=== PATIENT | female | born 1990 | race Caucasian/White ===

== ENCOUNTER → 2016-08-05 | Outpatient (CLI) | payer OTHER ==
--- NOTE | 2016-08-05 14:14 | MR ---
EXAMINATION TYPE: MR foot LT wo con DATE OF EXAM: 08/05/2016 1:58 PM COMPARISON: NONE HISTORY: 25-year-old female Generalized edema, pain when flex and extends toes. TECHNIQUE: Multiplanar, multisequence images of the the left foot were obtained without IV contrast. FINDINGS: No suspicious bone marrow placement or focal bone marrow edema. Vitamin E capsule is present along the dorsomedial aspect at the level of the first MTP joint. No und erlying significant soft tissue abnormality is identified. Visualized flexor and extensor tendons show no gross abnormality. There is some ganglion cyst formation in the region of the second through fourth TMT joints. The larg est measures up to 8 mm along the dorsal aspect of the third-fourth intermetatarsal joint Lisfranc ligament appears intact. No significant joint effusion seen within the forefoot or intermetatarsal bursal effusion identified. IMPRESSION: 1. Some small ganglion cysts measuring up to 8 mm have formed along the second through fourth TMT lanre nts. 2. No specific abnormality seen at the area of interest along the dorsomedial aspect of the first MTP joint.
== END | disposition home or self-care (01) ==
LOC: RADMRIMAIN 13:05
PROVIDERS: ATTEND Family Medicine
DX: M67.472 Ganglion, left ankle and foot (principal); R60.1 Generalized edema

== ENCOUNTER → 2016-10-13 | Outpatient (CLI) | payer OTHER ==
--- NOTE | 2016-10-13 10:32 | CT ---
EXAMINATION TYPE: CT chest w con DATE OF EXAM: 10/13/2016 10:14 AM COMPARISON: 02/17/2016 HISTORY: 25-year-old female with shortness of breath, previous abnormal lung exam. TECHNIQUE: Contiguous axial scanning of the chest after the administration of 100 mL of Omnipaque 300 . Coronal/sagittal reconstructions performed. CT DLP: 148.0mGycm. Automatic exposure control utilized for a dose reduction. FINDINGS: Heart is normal size without pericardial effusion. Aorta is normal caliber with conventional arch vessel branching anatomy. No thoracic lymphadenopathy by CT size criteria. Some mild residual thymic tissue as seen previously. Evaluation of the lungs again show similar mild biapical pleural-parenchymal scarring Some scattered mild peribronchial cuffing is noted, for example, axial image 20 in the right upper lo be. No consolidation or pleural effusion. Visualized upper abdomen shows focal fat along the anterior falciform ligament within the liver. Mode rate stool burden. Bones: No osseous destructive process. IMPRESSION: 1. Stable mild biapical pleural parenchymal scarring. 2. Scattered mild peribronchial cuffing could represent bronchitis or chronic asthma.
== END | disposition home or self-care (01) ==
LOC: RADCTMAIN 09:45
PROVIDERS: ATTEND Family Medicine
DX: J98.4 Other disorders of lung (principal); R06.02 Shortness of breath; R91.8 Other nonspecific abnormal finding of lung field
CPT/HCPCS: 71260; Q9967

== ENCOUNTER → 2018-05-28 | Outpatient (CLI) | payer BC ==
[2018-05-28 09:02] LABS: HCT 36.5 % (34.0-46.0); HGB 12.1 gm/dL (11.4-16.0); MCH 31.3 pg (25.0-35.0); MCHC 33.2 g/dL (31.0-37.0); MCV 94.1 fL (80.0-100.0); Platelet Count 205 k/uL (150-450); RBC 3.87 m/uL (3.80-5.40); RDW 12.5 % (11.5-15.5); WBC 8.7 k/uL (3.8-10.6)
== END | disposition home or self-care (01) ==
LOC: LABWHC1 07:41
PROVIDERS: ATTEND Obstetrics & Gynecology
DX: Z34.82 Encounter for supervision of other normal pregnancy, second trimester (principal)
CPT/HCPCS: 36415; 82950; 85027

== ENCOUNTER 2018-09-13 06:05 | Inpatient (IN) | payer BC ==
--- NOTE | 2018-09-12 16:46 | P.HPOB ---
History of Present Illness H&P Date: 09/12/18 Chief Complaint: repeat low transverse 27 year old presents at 39 weeks for repeat low transverse . Review of Systems All systems: negative Constitutional: Denies chills, Denies fever Eyes: denies blurred vision, denies pain Ears, nose, mouth and throat: Denies headache, Denies sore throat Cardiovascular: Denies chest pain, Denies shortness of breath Respiratory: Denies cough Gastrointestinal: Denies abdominal pain, Denies diarrhea, Denies nausea, Denies vomiting Genitourinary: Denies dysuria, Denies hematuria Musculoskeletal: Denies myalgias Integumentary: Denies pruritus, Denies rash Neurological: Denies numbness, Denies weakness Psychiatric: Denies anxiety, Denies depression Endocrine: Denies fatigue, Denies weight change Past Medical History Past Medical History: No Reported History Additional Past Medical History / Comment(s): OB history: First was a . THis is her second . She has had care with mi since 9 weeks. O+, abs neg, Rub Imm, RPR NR, Hep B neg, toxo neg, normal anatomy US and neg quad. normal 2 hr GTT. GBS neg. History of Any Multi-Drug Resistant Organisms: None Reported Past Surgical History: Section, Ear Surgery Additional Past Surgical History / Comment(s): pt states had reconstructive surgery on both her ear drums Past Anesthesia/Blood Transfusion Reactions: No Reported Reaction Smoking Status: Never smoker - Past Family History Mother History Unknown: Yes Family Medical History: No Reported History Medications and Allergies Home Medications Medication Instructions Recorded Confirmed Type Vit No.124/Iron/Folic 1 each PO DAILY 02/24/15 09/12/18 History [ Vitamin Tablet] Allergies Allergy/AdvReac Type Severity Reaction Status Date / Time No Known Allergies Allergy Verified 02/24/15 02:23 Exam Osteopathic Statement: *. No significant issues noted on an osteopathic structural exam other than those noted in the History and Physical/Consult. Intake and Output 09/12/18 09/12/18 09/12/18 06:59 14:59 22:59 Other: Weight 83.007 kg HEart: RRR Lungs: CTAB Abdomen: soft, nontender Extremeties: neg andie's Assessment and Plan (1) Previous section Status: Acute Code(s): Z98.891 - HISTORY OF UTERINE SCAR FROM PREVIOUS SURGERY SNOMED Code(s): 248122646 Plan: 1. Repeat low transverse
[2018-09-13] MEDS ORDERED: LACTATED RINGERS 1,000 ML IV SCH (06:19)
[2018-09-13] MEDS ORDERED: CITRIC ACID-SODIUM CITRATE 15 ML CUP PO ONE (06:20)
[2018-09-13 06:41] VITALS: BMI 32.1
[2018-09-13 06:41] LABS: Basophils % (A) 0 %; Eosinophils # (A) 0.1 k/uL (0-0.7); Eosinophils % (A) 1 %; HCT 37.8 % (34.0-46.0); HGB 12.5 gm/dL (11.4-16.0); Lymphocytes % (A) 18 %; MCH 31.2 pg (25.0-35.0); MCHC 33.1 g/dL (31.0-37.0); MCV 94.2 fL (80.0-100.0); Mean Platelet Volume 7.6; Monocytes # (A) 0.6 k/uL (0-1.0); Monocytes % (A) 5 %; Neutrophils # (A) 8.4 k/uL (1.3-7.7); Neutrophils % (A) 75 %; Platelet Count 211 k/uL (150-450); RBC 4.01 m/uL (3.80-5.40); RDW 13.1 % (11.5-15.5); WBC 11.2 k/uL (3.8-10.6)
[2018-09-13] MEDS: LACTATED RINGERS 1,000 ML IV SCH ×4 (06:42→19:06)
[2018-09-13] MEDS ORDERED: ceFAZolin IN SWFI 2 GM/20 ML SYRINGE IVP ONE (07:33)
[2018-09-13] MEDS ORDERED: OXYTOCIN 10 UNIT/ML 1 ML VIAL ONE (08:04)
[2018-09-13] MEDS ORDERED: ePHEDrine SULFATE/0.9% NACL/PF 50 MG/5 ML SYRINGE IV ONE (08:04)
[2018-09-13] MEDS ORDERED: ONDANSETRON 4 MG/2 ML VIAL ONE (08:04)
[2018-09-13] MEDS ORDERED: KETOROLAC 30 MG/ML 1 ML VIAL ONE (08:04)
[2018-09-13] MEDS ORDERED: NALBUPHINE 10 MG/ML (1 ML AMP) ONE (08:04)
[2018-09-13] MEDS ORDERED: MORPHINE SULFATE (PF) 0.3 MG/0.3 ML SYR ONE (08:04)
[2018-09-13] MEDS ORDERED: SIMETHICONE 80 MG CHEWABLE PO PRN (08:40)
[2018-09-13] MEDS ORDERED: LANOLIN CREAM 5 GM TUBE TOPICAL PRN (08:40)
[2018-09-13] MEDS ORDERED: NALOXONE 0.4 MG/ML 1 ML VIAL IV PRN (08:40)
[2018-09-13] MEDS ORDERED: diphenhydrAMINE 50 MG CAP PO PRN (08:40)
[2018-09-13] MEDS ORDERED: METOCLOPRAMIDE 5 MG/ML 2 ML VIAL IVP PRN (08:40)
[2018-09-13] MEDS ORDERED: ONDANSETRON 4 MG/2 ML VIAL IVP PRN (08:40)
[2018-09-13] MEDS ORDERED: diphenhydrAMINE 50 MG/ML 1 ML VIAL IVP PRN ×2 (08:40)
[2018-09-13] MEDS ORDERED: diphenhydrAMINE 25 MG CAP PO PRN (08:40)
[2018-09-13] MEDS ORDERED: HYDROcodone/APAP 7.5-325MG 1 EACH TAB PO PRN (08:40)
[2018-09-13] MEDS ORDERED: ZOLPIDEM 5 MG TAB PO PRN (08:40)
--- NOTE | 2018-09-13 08:40 | P.OP ---
Date of Procedure: 09/13/18 Preoperative Diagnosis: 1. Previous 2. G 2 P1 at 39 weeks Postoperative Diagnosis: Same Procedure(s) Performed: Repeat low transverse Anesthesia: spinal Surgeon: Brooke Mckeon Entry Level Sales Associate #1: Maryam Carlton Estimated Blood Loss (ml): 500 IV fluids (ml): 900 Urine output (ml): 300 Pathology: none sent Condition: stable Disposition: floor Operative Findings: Viable male, Apgars 8, 9, weight 7 lbs. 5 oz., normal uterus tubes and ovaries Description of Procedure: Patient was taken to the operating room where spinal anesthesia was found be adequate. She was prepped and draped in normal sterile fashion in dorsal supine position with a leftward tilt. Pfannenstiel skin incision was made the scalpel and carried through to the underlying layer of fascia with the scalpel. Fascia was incised in midline and carried bilaterally with the Brooks scissors. The superior aspect of the fascial incision was grasped with Juan Jose clamps elevated and the underlying rectus muscles dissected off with the Brooks's. Attention was then turned to inferior aspect of same incision which in a similar fashion was grasped tented up and the underlying rectus muscles dissected off with the Brooks's. The rectus muscles were the midline and the peritoneum was identified tented up and entered sharply with the scalpel. The incision was extended superiorly and inferiorly with good visualization of the bladder. The bladder blade was inserted and the vesicouterine peritoneum was incised the Metzenbaums then carried bilaterally and bladder flap created digitally. A low transverse incision was then made on the uterus with the scalpel. This was carried bilaterally and digital manner. 's head delivered atraumatically, nose and mouth bulb suctioned, cord clamped and cut, infant handed off to waiting nurses. Apgars 8,9, weight 7 lbs. 5 oz. Placenta delivered manually, intact with three-vessel cord. The uterus is exteriorized and cleared of all clots and debris. The uterine incision was closed with 0 Vicryl in a running locked fashion. Second layer of the same sutures used in imbricating fashion to obtain excellent hemostasis. Bladder flap was then reapproximated using 2-0 Vicryl in a running fashion. Both ovaries and tubes appeared normal. The uterus was placed back into the abdomen. The peritoneum was reapproximated using 2-0 Vicryl in a running fashion. The muscles were reapproximated using 2-0 Vicryl in interrupted fashion. The fascia was reapproximated using 0 Vicryl in a running fashion. The subcutaneous tissues closed with 3-0 Vicryl running fashion. The skin was closed yue. Patient tolerated the procedure well, sponge and instrument counts were correct times 2 and she was taken to the recovery room in stable condition.
[2018-09-13] MEDS ORDERED: OXYTOCIN 20 UNITS/1000 ML NS 1,000 ML IV SCH (08:45)
[2018-09-13] MEDS: SENNOSIDES-DOCUSATE SODIUM 1 EACH TAB PO SCH (22:30)
[2018-09-13] MEDS: KETOROLAC 30 MG/ML 1 ML VIAL IVP PRN (23:11)
[2018-09-14] MEDS: LACTATED RINGERS 1,000 ML IV SCH (02:36)
[2018-09-14] MEDS: SENNOSIDES-DOCUSATE SODIUM 1 EACH TAB PO SCH ×2 (07:42→19:22)
[2018-09-14 07:43] LABS: Basophils % (A) 0 %; Eosinophils % (A) 0 %; HCT 33.7 % (34.0-46.0); HGB 10.9 gm/dL (11.4-16.0); Lymphocytes # (A) 1.5 k/uL (1.0-4.8); Lymphocytes % (A) 12 %; MCH 31.3 pg (25.0-35.0); MCHC 32.4 g/dL (31.0-37.0); MCV 96.5 fL (80.0-100.0); Mean Platelet Volume 7.6; Monocytes # (A) 0.5 k/uL (0-1.0); Monocytes % (A) 4 %; Neutrophils # (A) 10.5 k/uL (1.3-7.7); Neutrophils % (A) 83 %; Platelet Count 157 k/uL (150-450); RBC 3.49 m/uL (3.80-5.40); RDW 13.4 % (11.5-15.5); WBC 12.7 k/uL (3.8-10.6)
[2018-09-14] MEDS: KETOROLAC 30 MG/ML 1 ML VIAL IVP PRN (11:56)
--- NOTE | 2018-09-14 13:14 | P.PNOBGPC ---
Subjective - Subjective Principal diagnosis: S/P RLTCS POD #1 Interval history: Pt seen and examined. Denies N/V, F/C, CP, SOB, calf pain. Patient reports: Reports appetite normal, Reports voiding normally, Reports pain well controlled, Reports ambulating normally [place]: doing well Objective - Vital Signs Latest vital signs: Vital Signs Temp Pulse Resp BP BP Pulse Ox 09/14/18 07:32 97.5 F L 85 16 95/59 09/14/18 04:00 98.0 F 92 18 101/53 98 09/14/18 00:00 97.6 F 96 18 113/55 97 09/13/18 20:00 97.6 F 78 16 109/59 99 09/13/18 15:46 97.0 F L 72 18 123/57 98 Intake and Output 09/13/18 09/14/18 09/14/18 22:59 06:59 14:59 Intake Total 625 200 Output Total 700 100 Balance -75 100 Intake: Intake, IV Titration 625 Amount Lactated Ringers 1,000 ml 625 @ 125 mls/hr IV .Q8H MANISH Rx#:[id number] Oral 200 Output: Urine 700 100 Other: # Voids 1 1 - Exam Lungs: bilateral: normal Chest: Normal S1, Normal S2 Extremities: Present: normal Abdomen: Present: normal appearance, soft. Absent: distention, tenderness Incision: Present: normal, dry, intact Uterus: Present: normal, firm - Labs Labs: Abnormal Lab Results - Last 24 Hours (Table) 09/14/18 Range/Units 07:20 WBC 12.7 H (3.8-10.6) k/uL RBC 3.49 L (3.80-5.40) m/uL Hgb 10.9 L (11.4-16.0) gm/dL Hct 33.7 L (34.0-46.0) % Neutrophils # 10.5 H (1.3-7.7) k/uL Assessment and Plan (1) Previous section Current Visit: No Status: Acute Code(s): Z98.891 - HISTORY OF UTERINE SCAR FROM PREVIOUS SURGERY SNOMED Code(s): 388217970 Plan: 1. cont pp care, passing flatus so will start reg diet
[2018-09-14] MEDS: ACETAMINOPHEN TAB 325 MG TAB PO PRN ×2 (16:14→23:28)
[2018-09-14] MEDS: IBUPROFEN 600 MG TAB PO PRN (19:23)
[2018-09-15 00:16] VITALS: PULSE 89
[2018-09-15] MEDS: IBUPROFEN 600 MG TAB PO PRN ×2 (02:06→07:41)
--- NOTE | 2018-09-15 07:26 | P.DS ---
Providers Date of admission: 09/13/18 06:05 Expected date of discharge: 09/15/18 Attending physician: Brooke Mckeon Primary care physician: Stated None Hospital Course: Lilly is doing very well post op day 2. She is ambulating, voiding, and she is tolerating her diet. She voices no complaints and is requesting discharge home today. Vital signs are stable and she is afebrile. Heart regular, lungs clear , extremities are without pain. Abdomen soft nontender incision is clean dry and intact. We'll plan to remove yue today and replaced with Steri-Strips. She'll follow up with Dr. Mckeon in 1 week. Prescription for a breast pump and Sturkie and Motrin are provided. All other questions are answered for her prior to discharge. She is stable for discharge this time. Patient Condition at Discharge: Good Plan - Discharge Summary Discharge Rx Participant: Yes New Discharge Prescriptions: New HYDROcodone/APAP 5-325MG [Sturkie 5-325] 1 tab PO Q4HR PRN #30 tab PRN Reason: Pain Ibuprofen [Motrin] 600 mg PO Q6HR PRN #30 tab PRN Reason: Pain No Action Vit No.124/Iron/Folic [ Vitamin Tablet] 1 each PO DAILY Discharge Medication List Vit No.124/Iron/Folic [ Vitamin Tablet] 1 each PO DAILY [History] HYDROcodone/APAP 5-325MG [Sturkie 5-325] 1 tab PO Q4HR PRN #30 tab 09/15/18 [Rx] Ibuprofen [Motrin] 600 mg PO Q6HR PRN #30 tab 09/15/18 [Rx] Follow up Appointment(s)/Referral(s): Brooke Mckeon DO [Doctor of Osteopathic Medicine] - 1 Week Activity/Diet/Wound Care/Special Instructions: No heavy lifting, limit stairs and driving, and pelvic rest. If any high temperatures, heavy bleeding, or severe pain call my office Discharge Disposition: HOME SELF-CARE
[2018-09-15] MEDS: SENNOSIDES-DOCUSATE SODIUM 1 EACH TAB PO SCH (07:42)
[2018-09-15 08:54] VITALS: BP 94/59; RESP 18; TEMP 97.7
== END 2018-09-15 10:40 | disposition home or self-care (01) | DRG 788 ==
LOC: 4FBP 06:05
PROVIDERS: ADMIT Obstetrics & Gynecology; ATTEND Obstetrics & Gynecology
PROC: 10D00Z1 Extraction of Products of Conception, Low, Open Approach (ICD-10-PCS; principal; 2018-09-13 08:00)
DX: O34.211 Maternal care for low transverse scar from previous cesarean delivery (principal); Z37.0 Single live birth; Z3A.39 39 weeks gestation of pregnancy
CPT/HCPCS: 85025; 86850; 86900; 86901

== ENCOUNTER → 2020-08-07 | Outpatient (CLI) | payer BC ==
[2020-08-07 14:19] VITALS: BP 107/72; PULSE 73; RESP 18; TEMP 98.4
--- NOTE | 2020-08-07 14:54 | P.GSHP ---
History of Present Illness H&P Date: 08/07/20 Chief Complaint: lump in right breast Lilly is a 29 year old white female seen in consultation for Estrellita Velazco. She noted an area of nodularity in her right breast approximately 2018. An ultrasound was done at that time. The area has not gone away [place] [address]. This has increased in size. This revealed 2 areas one which measured 2.2 cm and the second which measured 2.9 cm in proximity at the 2:00 subareolar region. Biopsy was recommended. The size is not related to her menstrual periods She has no nipple discharge or skin changes. She does have intermittent pain at the area of the nodules. She also notes that the nodules have increased in size. Caffeine: 2 cups coffee/day nicotine: Negative nikia-bromine: occasional BCP: none hormones: none Family History: maternal aunt: breast cancer paternal aunt: breast cancer Hormonal History: menarche: 14 , breast fed: yes, age at first : 23 periods: regular BCP: used them 3 years not now Surgical history: Eardrum repair C section times 2 Medical history: Negative Social history: Smoke: Negative Alcohol: Negative Drugs: negative - Constitutional Constitutional: Denies chills, Denies fever - EENT Eyes: denies blurred vision, denies pain Ears, nose, mouth and throat: Denies headache, Denies sore throat - Breasts Breasts: bilateral: as per HPI - Cardiovascular Cardiovascular: Denies chest pain, Denies shortness of breath - Respiratory Respiratory: Denies cough, Denies 7 - Gastrointestinal Gastrointestinal: Denies abdominal pain, Denies diarrhea, Denies nausea, Denies vomiting - Genitourinary (Female) Genitourinary: Denies dysuria, Denies hematuria - Menstruation Menstruation: Reports period normal - Musculoskeletal Musculoskeletal: Denies myalgias - Integumentary Integumentary: Denies pruritus, Denies rash - 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 THis is her second . She has had care with me since 9 weeks. O+, abs neg, Rub Imm, RPR NR, Hep B neg, toxo neg, normal anatomy US and neg quad. normal 2 hr GTT. GBS neg. History of Any Multi-Drug Resistant Organisms: None Reported Past Surgical History: Section, Ear Surgery Additional Past Surgical History / Comment(s): pt states had reconstructive surgery on both her ear drums Past Anesthesia/Blood Transfusion Reactions: No Reported Reaction Past Psychological History: No Psychological Hx Reported Smoking Status: Never smoker Past Alcohol Use History: None Reported Past Drug Use History: None Reported - Past Family History Mother History Unknown: Yes Family Medical History: No Reported History Medications and Allergies Home Medications Medication Instructions Recorded Confirmed Type Ibuprofen [Motrin] 600 mg PO Q6HR PRN #30 tab 09/15/18 08/07/20 Rx Cider Vinegar [Apple Cider Vinegar] 300 mg PO DAILY 08/07/20 08/07/20 History Allergies Allergy/AdvReac Type Severity Reaction Status Date / Time phenazopyridine Allergy Vomiting Verified 08/07/20 14:15 [From Pyridium] Surgical - Exam Vital Signs Temp Pulse Resp BP Pulse Ox 98.4 F 73 18 107/72 99 08/07/20 14:16 08/07/20 14:16 08/07/20 14:16 08/07/20 14:16 08/07/20 14:16 BMI 28.7 - General well developed, well nourished, no distress - Eyes normal ocular movement - ENT normal pinna, normal mucosa - Neck no masses, trachea midline - Respiratory normal respiratory effort, clear to auscultation - Cardiovascular Rhythm: regular Heart Sounds: normal: S1, S2 - Abdomen Abdomen: soft, bowel sounds - Integumentary normal turgor - Neurologic no disoriented, no combative - Musculoskeletal normal gait - Psychiatric oriented to time, oriented to person, oriented to place, speech is normal, memory intact breast exam: BRA 36A inspection: Bilateral grade 2 ptosis Palpation: Right breast: 6.5 x 5 cm mass in the immediate subareolar area consistent with what is seen on the ultrasound, fibrocystic changes otherwise no dominant masses or nodules of concern Right axilla: No adenopathy of concern Left breast: Multiple positional exam fibrocystic changes Left axilla: No adenopathy of concern Results Right breast ultrasound results reviewed Assessment and Plan Assessment: Impression: 1. Palpable mass right breast increasing in size 2. Abnormal ultrasound right breast Plan: 1. Ultrasound-guided core biopsy right breast lesion 2. Follow-up after ultrasound-guided core biopsy would most likely recommend removal. CC:Estrellita Velazco encounter 45 minutes, > 50% of time in planning and counselling
== END | disposition home or self-care (01) ==
LOC: WWCWWP 14:00
PROVIDERS: ATTEND Surgery
DX: Z53.9 Procedure and treatment not carried out, unspecified reason (principal)

== ENCOUNTER → 2020-08-11 | Day surgery (SDC) | payer BC ==
[2020-08-11 09:58] VITALS: RESP 16
[2020-08-11 11:06] VITALS: BP 106/67; PULSE 78; TEMP 98.8
--- NOTE | 2020-08-11 13:06 | USB ---
EXAMINATION TYPE: US breast needle core RT DATE OF EXAM: 08/11/2020 HISTORY: Right breast mass. FINDINGS: Maximal barrier technique was utilized. Hand hygiene achieved with soap and water and alco hol-based hand rub. The skin overlying a suitable path to the patient's mass in the lateral aspect of the right breast near the nipple was localized with ultrasound and the overlying skin prepped and dr aped. Ultrasound was utilized with sterile technique. Lidocaine was used for local anesthesia. A s kin nena was made with a scalpel. An 18-gauge needle was advanced under direct ultrasound guidance a nd core specimen obtained of the mass. Specimen submitted in formalin to Pathology. Following the pr ocedure, hemostasis achieved and the patient is discharged in stable condition without complication. IMPRESSION:STATUS POST ULTRASOUND GUIDED CORE BIOPSY OF right breast MASS, PATHOLOGY IS PENDING. THI S PROCEDURE IS PERFORMED BY THE UNDERSIGNED.
== END ==
LOC: RADUSWWP 09:36
PROVIDERS: ATTEND Surgery
DX: D24.1 Benign neoplasm of right breast (principal); N63.10 Unspecified lump in the right breast, unspecified quadrant; Z88.8 Allergy status to other drugs, medicaments and biological substances
CPT/HCPCS: 88305; 19083; J2001

== ENCOUNTER → 2020-08-20 | Outpatient (CLI) | payer BC ==
[2020-08-20 11:26] VITALS: BP 102/70; PULSE 66; RESP 16; TEMP 97.9
--- NOTE | 2020-08-20 11:40 | P.PN ---
Subjective Progress Note Date: 08/20/20 Principal diagnosis: mass right breast Lilly is a 29 year old white female seen in consultation for Estrellita Velazco. She noted an area of nodularity in her right breast approximately 2018. An ultrasound was done at that time. The area has not gone away [place] [address]. This has increased in size. This revealed 2 areas one which measured 2.2 cm and the second which measured 2.9 cm in proximity at the 2:00 subareolar region. Biopsy was recommended. The size is not related to her menstrual periods She has no nipple discharge or skin changes. She does have intermittent pain at the area of the nodules. She also notes that the nodules have increased in size. [place] [address]. 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 Caffeine: 2 cups coffee/day nicotine: Negative nikia-bromine: occasional BCP: none hormones: none Family History: maternal aunt: breast cancer paternal aunt: breast cancer Hormonal History: menarche: 14 , breast fed: yes, age at first : 23 periods: regular BCP: used them 3 years not now Surgical history: Eardrum repair C section times 2 Medical history: Negative Social history: Smoke: Negative Alcohol: Negative Drugs: negative - Constitutional Constitutional: Denies chills, Denies fever - EENT Eyes: denies blurred vision, denies pain Ears, nose, mouth and throat: Denies headache, Denies sore throat - Breasts Breasts: bilateral: as per HPI - Cardiovascular Cardiovascular: Denies chest pain, Denies shortness of breath - Respiratory Respiratory: Denies cough - Gastrointestinal Gastrointestinal: Denies abdominal pain, Denies diarrhea, Denies nausea, Denies vomiting - Genitourinary (Female) Genitourinary: Denies dysuria, Denies hematuria - Menstruation Menstruation: Reports period normal - Musculoskeletal Musculoskeletal: Denies myalgias - Integumentary Integumentary: Denies pruritus, Denies rash - 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 Neurological: Reports numbness, Denies weakness - Psychiatric Psychiatric: Denies anxiety, Denies depression - Endocrine Endocrine: Denies fatigue, Denies weight change - Hematologic/Lymphatic Comment: none - Allergic/Immunologic Allergic/Immunologic: Reports seasonal allergies Objective - Vital Signs Vital signs: Vital Signs Temp 97.9 F 08/20/20 11:23 Pulse 66 08/20/20 11:23 Resp 16 08/20/20 11:23 BP 102/70 08/20/20 11:23 Pulse Ox 99 08/20/20 11:23 Intake & Output 08/19/20 08/20/20 08/20/20 18:59 06:59 18:59 Weight 75.75 kg - Exam BMI 28.7 - Constitutional General appearance: Present: average body habitus - EENT Eyes: Present: EOMI ENT: Present: hearing grossly normal - Neck Neck: Present: normal ROM - Respiratory Respiratory: bilateral: CTA - Cardiovascular Rhythm: regular Heart sounds: normal: S1, S2 - Gastrointestinal General gastrointestinal: Present: soft - Integumentary Integumentary: Present: normal turgor - Musculoskeletal Musculoskeletal: Present: gait normal - Psychiatric Psychiatric: Present: A&O x's 3 - Additional findings Additional findings: Breast exam: BRA: 36A Inspection: Grade 2 ptosis bilaterally Palpation: Right breast: 6.5 x 5 cm mass in the immediate subareolar area consistent with fibroadenoma on ultrasound core biopsy Right axilla: No adenopathy of concern Left breast: Multiple positional exam fibrocystic changes Left axilla: No adenopathy of concern Assessment and Plan Assessment: Impression: Palpable mass right breast increasing in size consistent with fibroadenoma directly under the nipple areolar complex Plan: 1. Resection of palpable mass right breast in the operating room 2. Possible mastopexy 3. onco-plastic tissue transfer CC: Estrellita Velazco encounter 15 minutes, time spent in reviewing, examination, and counselling.
== END | disposition home or self-care (01) ==
LOC: WWCWWP 11:13
PROVIDERS: ATTEND Surgery
DX: Z53.9 Procedure and treatment not carried out, unspecified reason (principal)

== ENCOUNTER → 2020-10-01 | Outpatient (CLI) | payer BC ==
[2020-10-01 15:58] VITALS: BP 113/79; PULSE 72; RESP 18; TEMP 98.2
--- NOTE | 2020-10-01 16:08 | P.PN ---
Progress Note - Text Progress Note Date: 10/01/20 Subjective Progress Note Date: 08/20/20 Principal diagnosis: mass right breast Lilly is a 29 year old white female seen in consultation for Estrellita Velazco. She noted an area of nodularity in her right breast approximately 2018. An ultrasound was done at that time. The area has not gone away [place] [address]. This has increased in size. This revealed 2 areas one which measured 2.2 cm and the second which measured 2.9 cm in proximity at the 2:00 subareolar region. Biopsy was recommended. The size is not related to her menstrual periods She has no nipple discharge or skin changes. She does have intermittent pain at the area of the nodules. She also notes that the nodules have increased in size. [place] [address]. 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 Caffeine: 2 cups coffee/day nicotine: Negative nikia-bromine: occasional BCP: none hormones: none Family History: maternal aunt: breast cancer paternal aunt: breast cancer Hormonal History: menarche: 14 , breast fed: yes, age at first : 23 periods: regular BCP: used them 3 years not now Surgical history: Eardrum repair C section times 2 Medical history: Negative Social history: Smoke: Negative Alcohol: Negative Drugs: negative - Constitutional Constitutional: Denies chills, Denies fever - EENT Eyes: denies blurred vision, denies pain Ears, nose, mouth and throat: Denies headache, Denies sore throat - Breasts Breasts: bilateral: as per HPI - Cardiovascular Cardiovascular: Denies chest pain, Denies shortness of breath - Respiratory Respiratory: Denies cough - Gastrointestinal Gastrointestinal: Denies abdominal pain, Denies diarrhea, Denies nausea, Denies vomiting - Genitourinary (Female) Genitourinary: Denies dysuria, Denies hematuria - Menstruation Menstruation: Reports period normal - Musculoskeletal Musculoskeletal: Denies myalgias - Integumentary Integumentary: Denies pruritus, Denies rash - 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 Neurological: Reports numbness, Denies weakness - Psychiatric Psychiatric: Denies anxiety, Denies depression - Endocrine Endocrine: Denies fatigue, Denies weight change - Hematologic/Lymphatic Comment: none - Allergic/Immunologic Allergic/Immunologic: Reports seasonal allergies Objective - Exam BMI 28.7 - Constitutional General appearance: Present: average body habitus - EENT Eyes: Present: EOMI ENT: Present: hearing grossly normal - Neck Neck: Present: normal ROM - Respiratory Respiratory: bilateral: CTA - Cardiovascular Rhythm: regular Heart sounds: normal: S1, S2 - Gastrointestinal General gastrointestinal: Present: soft - Integumentary Integumentary: Present: normal turgor - Musculoskeletal Musculoskeletal: Present: gait normal - Psychiatric Psychiatric: Present: A&O x's 3 - Additional findings Additional findings: Breast exam: BRA: 36A Inspection: Grade 2 ptosis bilaterally Palpation: Right breast: 6.5 x 5 cm mass in the immediate subareolar area consistent with fibroadenoma on ultrasound core biopsy Right axilla: No adenopathy of concern Left breast: Multiple positional exam fibrocystic changes Left axilla: No adenopathy of concern Assessment and Plan Assessment: Impression: Palpable mass right breast increasing in size consistent with fibroadenoma directly under the nipple areolar complex Plan: 1. Resection of palpable mass right breast in the operating room 2. Possible mastopexy 3. onco-plastic tissue transfer Risk and benefits of the procedure were discussed with the patient. Secondary to the location directly under the nipple areolar complex risk of decreased sensation of the nipple areolar complex, bleeding, infection, reaction to the anesthetic are discussed. She also understands it could be some necrosis of the nipple areolar complex. There is also risk of recurrence of the lesion in the future. She understands that she will have asymmetry of the breast and wishes to proceed. CC: Estrellita Velazco
== END ==
LOC: WWCWWP 15:48
PROVIDERS: ATTEND Surgery
DX: D24.1 Benign neoplasm of right breast (principal)

== ENCOUNTER 2020-10-13 11:26 | Day surgery (SDC) | payer BC ==
[2020-10-08 14:48] VITALS: BMI 29.0
[~2020-10-13 11:26] MED LIST: HEPARIN SODIUM,PORCINE 5,000 UNIT/ML 1 ML VIAL SQ PRN; HYDROmorphone 0.5 MG/0.5 ML SYRINGE IVP PRN; LACTATED RINGERS 1,000 ML IV SCH; ONDANSETRON 4 MG/2 ML VIAL IVP PRN; fentaNYL (PF) 50 MCG/ML 2 ML AMP IV PRN
[2020-10-13] MEDS ORDERED: DEXAMETHASONE SOD PHOSPHATE 4 MG/ML 1 ML VIAL IVP ONE (11:59)
[2020-10-13] MEDS ORDERED: MIDAZOLAM 2 MG/2 ML VIAL ONE (13:21)
[2020-10-13] MEDS ORDERED: LIDOCAINE 1% INJ 10MG/ML (20 ML MDV) ONE (13:21)
[2020-10-13] MEDS ORDERED: fentaNYL (PF) 50 MCG/ML 2 ML AMP ONE (13:21)
[2020-10-13] MEDS ORDERED: SUCCINYLCHOLINE CHLORIDE 100 MG/5 ML SYR IV ONE (13:21)
[2020-10-13] MEDS ORDERED: PROPOFOL 10 MG/ML 20 ML VIAL IV ONE (13:21)
[2020-10-13] MEDS ORDERED: ONDANSETRON 4 MG/2 ML VIAL ONE (13:21)
[2020-10-13] MEDS ORDERED: LIDOCAINE 1% INJ 10MG/ML (20 ML MDV) SQ ONE ×2 (14:18)
--- NOTE | 2020-10-13 14:30 | P.OP ---
Date of Procedure: 10/13/20 Preoperative Diagnosis: Right breast fibroadenoma Postoperative Diagnosis: Same Procedure(s) Performed: Right breast mastopexy/excision of fibroadenoma Anesthesia: JOSSY Surgeon: Natasha Mccoy Estimated Blood Loss (ml): 5 IV fluids (ml): 600 Pathology: other (Fibroadenoma right breast) Condition: stable Disposition: same day Indications for Procedure: Enlarging mass in the nipple areolar complex Operative Findings: Soft tissue mass of the nipple areolar complex Description of Procedure: The patient is a 29-year-old white female with an enlarging mass in the right nipple areolar complex. Biopsy was consistent with fibroadenoma. This is increasing in size and bothering the patient and she wishes to have it excised. Additionally the right nipple areolar complex is lower than that on the left and therefore we chose to do this through a mastopexy incision. In the preoperative area the skin markings were placed. The plan is to reduce the area approximately 2 cm. A crescent was drawn for the mastopexy. The patient was brought to the operating room. Both breasts were prepped and draped in a sterile fashion. The crescent on the right breast was de-epithelialized. The breast tissue was entered and approximately 4 x 3 cm fibroadenoma was excised from under the nipple areolar complex. After assured that hemostasis was attained the deep tissues were closed using 3-0 Vicryl suture. The mastopexy incision was closed with 3-0 Vicryl suture followed by a 4-0 Monocryl. The area was placed approximately 2 cm. The patient tolerated the procedure in stable condition. The specimen was painted for orientation. The skin was closed using a nylon suture. 10 mL of 1% lidocaine was used to anesthetize the area of the incision.
--- NOTE | 2020-10-13 14:32 | P.DS ---
Providers Attending physician: Natasha Mccoy Primary care physician: Estrellita Velazco Plan - Discharge Summary Discharge Rx Participant: No New Discharge Prescriptions: No Action No Known Home Medications Discharge Medication List No Known Home Medications 10/08/20 [History] Follow up Appointment(s)/Referral(s): Natasha Mccoy MD [STAFF PHYSICIAN] - 1 Week Activity/Diet/Wound Care/Special Instructions: do not drive today may shower after 48 hours wear bra at all time Discharge Disposition: HOME SELF-CARE
[2020-10-13 14:48] VITALS: TEMP 97.4
[2020-10-13 14:49] VITALS: RESP 16
[2020-10-13] MEDS ORDERED: ONDANSETRON 4 MG/2 ML VIAL IVP ONE (15:07)
[2020-10-13] MEDS ORDERED: SCOPOLAMINE 1.5MG/72HR PATCH TRANSDERM ONE (15:49)
[2020-10-13 16:50] VITALS: BP 98/62
[2020-10-13 17:02] VITALS: PULSE 71
== END 2020-10-13 17:17 | disposition home or self-care (01) ==
LOC: OR 11:26
PROVIDERS: ATTEND Surgery
DX: D24.1 Benign neoplasm of right breast (principal); Z98.891 History of uterine scar from previous surgery; Z98.890 Other specified postprocedural states; Z88.8 Allergy status to other drugs, medicaments and biological substances
CPT/HCPCS: 19120; 19316; J2250; J1644; J1100; J0690; J2405; J2001; J3010; J0330; J2704; J1170; J1790; 88305

== ENCOUNTER → 2020-10-22 | Outpatient (CLI) | payer BC ==
[2020-10-22 16:51] VITALS: BP 115/73; PULSE 69; RESP 18; TEMP 98.2
--- NOTE | 2020-10-22 16:53 | P.PN ---
Progress Note - Text Progress Note Date: 10/22/20 Katherin is a 29-year-old white female status post excision of fibroadenoma of the right breast on . Pathology is benign fibroadenoma. She is doing well postoperatively without complaints. Physical exam: Incision clean and dry sutures to be removed Patient to follow up in 6 months with ultrasound of the right breast at that time CC: DR. Velazco
== END ==
LOC: WWCWWP 15:27
PROVIDERS: ATTEND Surgery
DX: Z08 Encounter for follow-up examination after completed treatment for malignant neoplasm (principal); Z98.890 Other specified postprocedural states

== ENCOUNTER → 2021-04-19 | Outpatient (CLI) | payer BC ==
--- NOTE | 2021-04-20 07:53 | USB ---
Reason for exam: follow-up at short interval from prior study. History: Family history of breast cancer in maternal aunt and breast cancer in paternal aunt. Benign US breast needle core RT of the right breast, August 11, 2020. Physical Findings: Nurse did not find any significant physical abnormalities on exam. US Breast RT Technologist: Stacia Calderon Right complete breast ultrasound includes all four quadrants, the retroareolar region and axilla. Finding demonstrates no cystic or solid lesion seen. These results were verbally communicated with the patient and result sheet given to the patient on 04/19/21. ASSESSMENT: Negative, BI-RAD 1 RECOMMENDATION: Routine screening mammogram of both breasts at age 42.
== END | disposition home or self-care (01) ==
LOC: RADUSWWP 14:54
PROVIDERS: ATTEND Surgery
DX: R92.8 Other abnormal and inconclusive findings on diagnostic imaging of breast (principal); Z80.3 Family history of malignant neoplasm of breast

== ENCOUNTER → 2021-04-29 | Outpatient (CLI) | payer BC ==
[2021-04-29 15:26] VITALS: BP 103/66; PULSE 61; RESP 12; TEMP 98.6
--- NOTE | 2021-04-29 15:42 | P.PN ---
Subjective Progress Note Date: 04/29/21 Principal diagnosis: follow up fibroadenoma resected right breast mass right breast Lilly is a 30 year old white female seen in consultation for Estrellita Velazco. She noted an area of nodularity in her right breast approximately 2018. An ultrasound was done at that time. The area did not go away [place] [address]. This had increased in size. This revealed 2 areas one which measured 2.2 cm and the second which measured 2.9 cm in proximity at the 2:00 subareolar region. Biopsy was recommended. The size is not related to her menstrual periods She has no nipple discharge or skin changes. She does have intermittent pain at the area of the nodules. She also notes that the nodules had increased in size. [place] [address]. 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 She underwent resection in the operating room of the area and 320 321 and pathology was a benign fibroadenoma. The patient had a repeat right breast ultrasound done on 920 721 lesions of co ncern were noted this was benign BIRADS 1. Patient has no lumps masses or nodules for which she is concerned in her breast. Caffeine: 2 cups coffee/day nicotine: Negative nikia-bromine: occasional BCP: none hormones: none Family History: maternal aunt: breast cancer paternal aunt: breast cancer Hormonal History: menarche: 14 , breast fed: yes, age at first : 23 periods: regular BCP: used them 3 years not now Surgical history: Eardrum repair C section times 2 Medical history: Negative Medical History: negative Social history: Smoke: Negative Alcohol: Negative Drugs: negative - Constitutional Constitutional: Denies chills, Denies fever - EENT Eyes: denies blurred vision, denies pain Ears, nose, mouth and throat: Denies headache, Denies sore throat - Breasts Breasts: bilateral: as per HPI - Cardiovascular Cardiovascular: Denies chest pain, Denies shortness of breath - Respiratory Respiratory: Denies cough - Gastrointestinal Gastrointestinal: Denies abdominal pain, Denies diarrhea, Denies nausea, Denies vomiting - Genitourinary (Female) Genitourinary: Denies dysuria, Denies hematuria - Menstruation Menstruation: Reports period normal - Musculoskeletal Musculoskeletal: Denies myalgias - Integumentary Integumentary: Denies pruritus, Denies rash - 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 Neurological: Reports numbness, Denies weakness - Psychiatric Psychiatric: Denies anxiety, Denies depression - Endocrine Endocrine: Denies fatigue, Denies weight change - Hematologic/Lymphatic Comment: none - Allergic/Immunologic Allergic/Immunologic: Reports seasonal allergies Objective - Vital Signs Vital signs: Vital Signs Temp 98.6 F 04/29/21 15:18 Pulse 61 04/29/21 15:18 Resp 12 04/29/21 15:18 BP 103/66 04/29/21 15:18 Pulse Ox 98 04/29/21 15:18 Intake & Output 04/28/21 04/29/21 04/29/21 18:59 06:59 18:59 Weight 73.028 kg - Exam BMI 27.6 - Constitutional General appearance: Present: average body habitus - EENT Eyes: Present: EOMI ENT: Present: hearing grossly normal - Neck Neck: Present: normal ROM - Respiratory Respiratory: bilateral: CTA - Cardiovascular Rhythm: regular Heart sounds: normal: S1, S2 - Integumentary Integumentary: Present: normal turgor - Musculoskeletal Musculoskeletal: Present: gait normal - Psychiatric Psychiatric: Present: A&O x's 3, appropriate affect, intact judgment & insight - Additional findings Additional findings: Breast exam: BRA: 36B inspection: Grade 1 ptosis bilaterally Palpation: Right breast: Well-healed scar from prior surgery no dominant masses or nodules of concern Right axilla: No adenopathy of concern Left breast: No dominant masses or nodules of concern, fibrocystic changes Left axilla: No adenopathy of concern Assessment and Plan Assessment: Impression: 1. Patient status post excision fibroadenoma right breast 2321 No evidence of recurrence Plan: Repeat ultrasound right breast in 6 months Follow-up with that time CC: Dr. Estrellita Velazco
== END ==
LOC: WWCWWP 15:16
PROVIDERS: ATTEND Surgery
DX: Z09 Encounter for follow-up examination after completed treatment for conditions other than malignant neoplasm (principal); Z86.018 Personal history of other benign neoplasm; Z88.5 Allergy status to narcotic agent; Z80.3 Family history of malignant neoplasm of breast; Z88.8 Allergy status to other drugs, medicaments and biological substances

== ENCOUNTER 2022-10-11 06:08 | Inpatient (IN) | payer BC ==
[2022-10-06 16:14] VITALS: BMI 34.8
[2022-10-11] MEDS ORDERED: CITRIC ACID-SODIUM CITRATE 15 ML CUP PO ONE (06:45)
[2022-10-11 07:21] VITALS: RESP 16
[2022-10-11 07:31] LABS: Basophils % (A) 0 %; Eosinophils # (A) 0.1 k/uL (0-0.7); Eosinophils % (A) 1 %; HCT 36.7 % (34.0-46.0); HGB 12.6 gm/dL (11.4-16.0); Lymphocytes # (A) 1.7 k/uL (1.0-4.8); Lymphocytes % (A) 18 %; MCH 31.8 pg (25.0-35.0); MCHC 34.5 g/dL (31.0-37.0); MCV 92.4 fL (80.0-100.0); Mean Platelet Volume 8.1; Monocytes # (A) 0.5 k/uL (0-1.0); Monocytes % (A) 5 %; Neutrophils # (A) 6.9 k/uL (1.3-7.7); Neutrophils % (A) 74 %; Platelet Count 186 k/uL (150-450); RBC 3.97 m/uL (3.80-5.40); RDW 12.7 % (11.5-15.5); WBC 9.4 k/uL (3.8-10.6)
[2022-10-11] MEDS ORDERED: MORPHINE SULFATE (PF) 0.3 MG/0.3 ML SYR ONE (07:55)
[2022-10-11] MEDS ORDERED: OXYTOCIN 30 UNITS/500 ML NS BAG IV ONE (07:55)
[2022-10-11] MEDS ORDERED: KETOROLAC 15 MG/ML 1 ML VIAL ONE (07:55)
[2022-10-11] MEDS ORDERED: PHENYLEPHRINE-0.9% NACL SYG 1,000 MCG/10 ML SYRINGE ONE (07:55)
--- NOTE | 2022-10-11 08:34 | P.HPOB ---
History of Present Illness H&P Date: 10/11/22 Chief Complaint: repeat low transverse 31-year-old presents at 39 weeks for repeat low transverse . Review of Systems All systems: negative Constitutional: Denies chills, Denies fever Eyes: denies blurred vision, denies pain Ears, nose, mouth and throat: Denies headache, Denies sore throat Cardiovascular: Denies chest pain, Denies shortness of breath Respiratory: Denies cough Gastrointestinal: Denies abdominal pain, Denies diarrhea, Denies nausea, Denies vomiting Genitourinary: Denies dysuria, Denies hematuria Musculoskeletal: Denies myalgias Integumentary: Denies pruritus, Denies rash Neurological: Denies numbness, Denies weakness Psychiatric: Denies anxiety, Denies depression Endocrine: Denies fatigue, Denies weight change Past Medical History Past Medical History: No Reported History Additional Past Medical History / Comment(s): PALPABLE MASS TO RIGHT BREAST biopsy performed and mass removed. History of Any Multi-Drug Resistant Organisms: None Reported Past Surgical History: Section, Ear Surgery Additional Past Surgical History / Comment(s): pt states had reconstructive surgery on both her ear drums. C-SEC X 2. RT FIBROID BREAST TUMOR REMOVED Past Anesthesia/Blood Transfusion Reactions: Postoperative Nausea & Vomiting (PONV) Past Psychological History: No Psychological Hx Reported Smoking Status: Never smoker Past Alcohol Use History: None Reported Past Drug Use History: None Reported - Past Family History Father Family Medical History: COPD, Hypertension Additional Family Medical History / Comment(s): Goutt Mother History Unknown: Yes Family Medical History: Diabetes Mellitus, Hypertension, Rheumatoid Arthritis (RA) Additional Family Medical History / Comment(s): spinal stenosis Medications and Allergies Home Medications Medication Instructions Recorded Confirmed Type Vit No.179/Iron/Folic 1 each PO DAILY 10/06/22 10/06/22 History [ Tablet] Allergies Allergy/AdvReac Type Severity Reaction Status Date / Time phenazopyridine Allergy Vomiting Verified 10/06/22 16:08 [From Pyridium] morphine AdvReac Nausea & Verified 10/06/22 16:08 Vomiting Exam Osteopathic Statement: *. No significant issues noted on an osteopathic structural exam other than those noted in the History and Physical/Consult. Vital Signs Temp Pulse Resp BP Pulse Ox 10/11/22 06:27 97.3 F L 87 16 133/60 98 Intake and Output 10/10/22 10/11/22 10/11/22 22:59 06:59 14:59 Other: Weight 92.079 kg Heart: Regular rate and rhythm Lungs: Clear to auscultation bilaterally Abdomen: Soft, nontender Extremities: Negative Homans sign Results Result Diagrams: 10/11/22 06:53 Assessment and Plan (1) Previous section Current Visit: No Status: Acute Code(s): Z98.891 - HISTORY OF UTERINE SCAR FROM PREVIOUS SURGERY SNOMED Code(s): 370792901 Plan: 1. Repeat low transverse
--- NOTE | 2022-10-11 08:37 | P.OP ---
Date of Procedure: 10/11/22 Preoperative Diagnosis: 1. at 39 weeks 2. Previous section Postoperative Diagnosis: Same Procedure(s) Performed: Repeat low transverse Anesthesia: spinal Surgeon: Brooke Mckeon Baking Assistant #1: Junior Mckeon Estimated Blood Loss (ml): 675 IV fluids (ml): 700 Urine output (ml): 200 Pathology: none sent Condition: stable Disposition: floor Operative Findings: Viable female, Apgars 9, 9, weight 8 pounds. Normal uterus tubes and ovaries Description of Procedure: Patient was taken to the operating room where spinal anesthesia was found be adequate. She was prepped and draped in normal sterile fashion in dorsal supine position with a leftward tilt. Pfannenstiel skin incision was made the scalpel and carried through to the underlying layer of fascia with the scalpel. Fascia was incised in midline and carried bilaterally with the Brooks scissors. The superior aspect of the fascial incision was grasped with [place] clamps elevated and the underlying rectus muscles dissected off with the Brooks's. Attention was then turned to inferior aspect of same incision which in a similar fashion was grasped tented up and the underlying rectus muscles dissected off with the Brooks's. The rectus muscles were the midline and the peritoneum was identified tented up and entered sharply with the scalpel. The incision was extended superiorly and inferiorly with good visualization of the bladder. The bladder blade was inserted and the vesicouterine peritoneum was incised the Metzenbaums then carried bilaterally and bladder flap created digitally. A low transverse incision was then made on the uterus with the scalpel. This was carried bilaterally and digital manner. 's head delivered atraumatically, nose and mouth bulb suctioned, cord clamped and cut, handed off to waiting nurses. Apgars 9,9, weight 8 lbs. Placenta delivered manually, intact with three-vessel cord. The uterus is exteriorized and cleared of all clots and debris. The uterine incision was closed with 0 Vicryl in a running locked fashion. Second layer of the same sutures used in imbricating fashion to obtain excellent hemostasis. Both ovaries and tubes appeared normal. The uterus was placed back into the abdomen. The peritoneum was reapproximated using 2-0 Vicryl in a running fashion. The muscles were reapproximated using 2-0 Vicryl in interrupted fashion. The fascia was reapproximated using 0 Vicryl in a running fashion. The subcutaneous tissues closed with 3-0 Vicryl running fashion. The skin was closed yue. Patient tolerated the procedure well, sponge and instrument counts were correct times 2 and she was taken to the recovery room in stable condition.
[2022-10-11] MEDS ORDERED: diphenhydrAMINE 50 MG CAP PO PRN (08:38)
[2022-10-11] MEDS ORDERED: diphenhydrAMINE 25 MG CAP PO PRN (08:38)
[2022-10-11] MEDS ORDERED: METOCLOPRAMIDE 5 MG/ML 2 ML VIAL IVP PRN (08:38)
[2022-10-11] MEDS ORDERED: ONDANSETRON 4 MG/2 ML VIAL IVP PRN (08:38)
[2022-10-11] MEDS ORDERED: NALOXONE 0.4 MG/ML 1 ML VIAL IV PRN (08:38)
[2022-10-11] MEDS ORDERED: LANOLIN CREAM 5 GM TUBE TOPICAL PRN (08:38)
[2022-10-11] MEDS ORDERED: SIMETHICONE 80 MG CHEWABLE PO PRN (08:38)
[2022-10-11] MEDS ORDERED: diphenhydrAMINE 50 MG/ML 1 ML VIAL IVP PRN ×2 (08:38)
[2022-10-11] MEDS ORDERED: ZOLPIDEM 5 MG TAB PO PRN (08:38)
[2022-10-11] MEDS ORDERED: OXYTOCIN 30 UNITS/500 ML NS 30 UNIT in SALINE 1 500ML.BAG IV SCH (08:45)
[2022-10-11] MEDS: ACETAMINOPHEN TAB 500 MG TAB PO SCH ×2 (14:30→18:20)
[2022-10-11] MEDS: IBUPROFEN 600 MG TAB PO SCH ×2 (14:32→20:57)
[2022-10-11] MEDS: KETOROLAC 15 MG/ML 1 ML VIAL IVP SCH (14:39)
[2022-10-11] MEDS: LACTATED RINGERS 1,000 ML IV SCH (17:02)
[2022-10-11] MEDS: SENNOSIDES-DOCUSATE SODIUM 1 EACH TAB PO SCH (20:57)
[2022-10-12] MEDS: ACETAMINOPHEN TAB 500 MG TAB PO SCH ×5 (00:38→23:59)
[2022-10-12] MEDS: LACTATED RINGERS 1,000 ML IV SCH (04:37)
[2022-10-12] MEDS: IBUPROFEN 600 MG TAB PO SCH ×4 (04:53→21:25)
[2022-10-12] MEDS: KETOROLAC 15 MG/ML 1 ML VIAL IVP SCH ×2 (05:00→07:20)
--- NOTE | 2022-10-12 07:13 | P.PN ---
Progress Note - Text Progress Note Date: 10/12/22 Postoperative day 1 status post section under spinal anesthesia, and i ntrathecal morphine given for postoperative analgesia, patient doing well, there is no anesthesia related complications, Patient had no headache, vital signs stable , Assessment and plan= postop day 1 status post , doing well there is no anesthesia related complication.
[2022-10-12 08:19] LABS: Basophils % (A) 0 %; Eosinophils # (A) 0.1 k/uL (0-0.7); Eosinophils % (A) 0 %; HCT 33.9 % (34.0-46.0); HGB 11.3 gm/dL (11.4-16.0); Lymphocytes # (A) 1.4 k/uL (1.0-4.8); Lymphocytes % (A) 12 %; MCH 31.5 pg (25.0-35.0); MCHC 33.4 g/dL (31.0-37.0); MCV 94.3 fL (80.0-100.0); Mean Platelet Volume 8.8; Monocytes # (A) 0.3 k/uL (0-1.0); Monocytes % (A) 3 %; Neutrophils # (A) 9.8 k/uL (1.3-7.7); Neutrophils % (A) 84 %; Platelet Count 162 k/uL (150-450); RBC 3.59 m/uL (3.80-5.40); RDW 12.8 % (11.5-15.5); WBC 11.6 k/uL (3.8-10.6)
--- NOTE | 2022-10-12 08:32 | P.PNOBGPC ---
Subjective - Subjective Principal diagnosis: Status post repeat low transverse postop day 1 Interval history: Patient seen and examined. Denies nausea, vomiting, chest pain, shortness of breath or calf pain. Patient reports: Reports appetite normal, Reports voiding normally, Reports pain well controlled, Reports ambulating normally : doing well Objective - Vital Signs Latest vital signs: Vital Signs Temp Pulse Resp BP Pulse Ox 10/12/22 08:07 97.5 F L 81 16 100/64 100 10/12/22 04:00 97.6 F 77 16 107/59 100 10/11/22 23:24 97.8 F 70 16 112/56 98 10/11/22 19:52 97.9 F 81 16 105/65 10/11/22 15:29 97.4 F L 73 16 112/68 98 10/11/22 10:34 61 16 102/56 99 10/11/22 10:04 67 16 91/54 98 10/11/22 09:34 66 16 103/58 97 10/11/22 09:19 67 16 96/52 98 10/11/22 09:04 78 16 99/51 99 10/11/22 08:49 98 16 96/52 98 10/11/22 08:34 96.8 F L 77 16 98/55 97 Intake and Output 10/11/22 10/12/22 10/12/22 22:59 06:59 14:59 Output Total 300 Balance -300 Output: Urine 300 Other: # Voids 1 - Exam Lungs: bilateral: normal Chest: Normal S1, Normal S2 Extremities: Present: normal Abdomen: Present: normal appearance, soft. Absent: distention, tenderness Incision: Present: normal, dry, intact Uterus: Present: normal, firm - Labs Labs: Abnormal Lab Results - Last 24 Hours (Table) 10/12/22 Range/Units 08:03 WBC 11.6 H (3.8-10.6) k/uL RBC 3.59 L (3.80-5.40) m/uL Hgb 11.3 L (11.4-16.0) gm/dL Hct 33.9 L (34.0-46.0) % Neutrophils # 9.8 H (1.3-7.7) k/uL Assessment and Plan (1) Previous section Current Visit: No Status: Resolved Code(s): Z98.891 - HISTORY OF UTERINE SCAR FROM PREVIOUS SURGERY SNOMED Code(s): 359032471 (2) Status post repeat low transverse section Current Visit: Yes Status: Acute Code(s): Z98.891 - HISTORY OF UTERINE SCAR FROM PREVIOUS SURGERY SNOMED Code(s): 930286643 Plan: 1. Increase ambulation 2. Regular diet 3. By mouth pain meds
[2022-10-12] MEDS ORDERED: AZITHROMYCIN 500 MG TAB PO SCH (09:00)
[2022-10-12] MEDS: SENNOSIDES-DOCUSATE SODIUM 1 EACH TAB PO SCH ×2 (11:09→19:38)
[2022-10-13] MEDS: IBUPROFEN 600 MG TAB PO SCH (03:05)
[2022-10-13] MEDS: LACTATED RINGERS 1,000 ML IV SCH (07:25)
[2022-10-13] MEDS: KETOROLAC 15 MG/ML 1 ML VIAL IVP SCH (07:26)
[2022-10-13] MEDS: ACETAMINOPHEN TAB 500 MG TAB PO SCH (07:36)
[2022-10-13] MEDS: SENNOSIDES-DOCUSATE SODIUM 1 EACH TAB PO SCH (08:45)
[2022-10-13 08:47] VITALS: BP 108/72; PULSE 74; TEMP 98.3
[2022-10-13] MEDS ORDERED: AZITHROMYCIN 250 MG TAB PO SCH (09:00)
--- NOTE | 2022-10-13 09:15 | P.DS ---
Providers Date of admission: 10/11/22 06:08 Expected date of discharge: 10/13/22 Attending physician: Brooke Mckeon Primary care physician: Stated None - Discharge Diagnosis(es) (1) Previous section Current Visit: No Status: Resolved (2) Status post repeat low transverse section Current Visit: Yes Status: Acute Hospital Course: Patient presented for repeat low transverse . She underwent this procedure without complication. She denies nausea, vomiting, chest pain, sugars of breath or calf pain. She'll be discharged home postoperative day #2 in stable condition to follow-up with me in one week. Plan - Discharge Summary Discharge Rx Participant: Yes New Discharge Prescriptions: New Ibuprofen [Motrin] 600 mg PO Q6H #30 tab oxyCODONE HCL [OxyIR] 5 mg PO Q4H PRN 3 Days #18 tab PRN Reason: Pain Azithromycin [Zithromax] 250 mg PO DAILY #4 tab No Action Vit No.179/Iron/Folic [ Tablet] 1 each PO DAILY Discharge Medication List Vit No.179/Iron/Folic [ Tablet] 1 each PO DAILY 10/06/22 [History] Azithromycin [Zithromax] 250 mg PO DAILY #4 tab 10/13/22 [Rx] Ibuprofen [Motrin] 600 mg PO Q6H #30 tab 10/13/22 [Rx] oxyCODONE HCL [OxyIR] 5 mg PO Q4H PRN 3 Days #18 tab 10/13/22 [Rx] Follow up Appointment(s)/Referral(s): Brooke Mckeon DO [Doctor of Osteopathic Medicine] - 1 Week (PO 10-24-2022 @9:15 AM PP 11-21-2022 @10:45AM) Discharge Disposition: HOME SELF-CARE
== END 2022-10-13 10:42 | disposition home or self-care (01) | DRG 788 ==
LOC: 4FBP 06:08
PROVIDERS: ADMIT Obstetrics & Gynecology; ATTEND Obstetrics & Gynecology
PROC: 10D00Z1 Extraction of Products of Conception, Low, Open Approach (ICD-10-PCS; principal; 2022-10-11 08:00)
DX: O34.211 Maternal care for low transverse scar from previous cesarean delivery (principal); Z37.0 Single live birth; Z3A.39 39 weeks gestation of pregnancy; Z88.8 Allergy status to other drugs, medicaments and biological substances; Z88.5 Allergy status to narcotic agent
CPT/HCPCS: 85025; 86850; 86900; 86901